=== PATIENT | male | born 1970 | race Caucasian/White ===

== ENCOUNTER 2020-05-13 15:44 | Outpatient (CLI) | payer MEDICAID ==
[~2020-05-13] VITALS: Ht 195.6 cm; Wt 129.3 kg
[~2020-05-13 15:44] MED LIST: HYDR1TAB PO
[2020-05-13] MEDS ORDERED: albuterol 2.5 MG/3 ML nebule NEB ONE (16:25)
[2020-05-13] MEDS ORDERED: albuterol 2.5 MG/3 ML nebule NEB PRN (16:25)
== END 2020-05-13 23:59 | disposition home or self-care (01) ==
LOC: RT 15:44
PROVIDERS: ATTEND Family Medicine
DX: G47.30 Sleep apnea, unspecified (principal)
CPT/HCPCS: 94060; 94760

== ENCOUNTER 2020-07-11 20:55 | Emergency (ER) | payer MEDICAID ==
[~2020-07-11] VITALS: Ht 195.6 cm; Wt 133.8 kg
[2020-07-11] MEDS ORDERED: oxyCODONE/APAP 10/325mg tablet PO ONE (21:50)
[2020-07-11 22:09] LABS: ALANINE AMINOTRANSFERASE 112 U/L (12-78); ALBUMIN 3.6 G/DL (3.4-5.0); ALBUMIN/GLOBULIN RATIO 0.9 (1.1-1.5); ALKALINE PHOSPHATASE 223 IU/L (46-116); ANION GAP 14 (8-16); ASPARTATE AMINO TRANSFERASE 192 U/L (10-37); BILIRUBIN,TOTAL 0.9 MG/DL (0.1-1.0); BLOOD UREA NITROGEN 6 MG/DL (7-18); BUN/CREATININE RATIO 7.3 (5.4-32.0); CALCIUM 8.4 MG/DL (8.5-10.1); CHLORIDE 105 MMOL/L (99-107); CREATININE 0.82 MG/DL (0.60-1.10); GLUCOSE 112 MG/DL (70-104); POTASSIUM 3.1 MMOL/L (3.5-5.1); SODIUM 142 MMOL/L (135-145); TOTAL CARBON DIOXIDE 22.9 MMOL/L (24-32); TOTAL PROTEIN 7.8 G/DL (6.4-8.2); eGFR > 90 ML/MIN
[2020-07-11 22:12] LABS: BASOPHILS # (AUTO) 0.1 X10'3 (0-0.2); BASOPHILS % (AUTO) 0.9 % (0-1); EOSINOPHILS # (AUTO) 0.1 X10'3 (0-0.9); EOSINOPHILS % (AUTO) 0.7 % (0-6); HEMATOCRIT 43.1 % (42.0-52.0); HEMOGLOBIN 14.4 g/dl (14.0-17.9); LYMPHOCYTES # (AUTO) 1.9 X10'3 (1.1-4.8); LYMPHOCYTES % (AUTO) 21.7 % (21-51); MEAN CORPUSCULAR HEMOGLOBIN 34.1 PG (27.0-31.0); MEAN CORPUSCULAR HGB CONC 33.5 g/dL (33.0-36.5); MEAN CORPUSCULAR VOLUME 101.8 FL (78-98); MEAN PLATELET VOLUME 9.4 FL (7.4-10.4); MONOCYTES # (AUTO) 0.7 X10'3 (0-0.9); MONOCYTES % (AUTO) 7.7 % (2-12); PLATELET COUNT 159 X10'3 (140-440); RED BLOOD COUNT 4.24 X10'6 (4.70-6.10); WHITE BLOOD COUNT 8.7 X10'3 (4.5-11.0)
[2020-07-11] MEDS ORDERED: iohexol 300mg/ml 100ml inj. ONE (22:39)
[2020-07-11 23:55] VITALS: BP 148/86
== END 2020-07-11 23:45 | disposition home or self-care (01) ==
LOC: ER 20:56
DX: S09.90XA Unspecified injury of head, initial encounter (principal); R07.89 Other chest pain; H11.31 Conjunctival hemorrhage, right eye; F17.200 Nicotine dependence, unspecified, uncomplicated; F12.90 Cannabis use, unspecified, uncomplicated; Z98.890 Other specified postprocedural states; Z72.89 Other problems related to lifestyle; Z56.0 Unemployment, unspecified; Z59.0 Homelessness; Z79.899 Other long term (current) drug therapy; X58.XXXA Exposure to other specified factors, initial encounter; Y93.89 Activity, other specified; Y92.89 Other specified places as the place of occurrence of the external cause; Y99.8 Other external cause status
CPT/HCPCS: 36415; 70460; 71046; 71260; 74177; 80053; 85025; 99285; Q9967

== ENCOUNTER 2021-12-04 09:51 | Inpatient (IN) | payer MEDICAID ==
[~2021-12-04] VITALS: Ht 195.6 cm; Wt 131.8 kg
[~2021-12-04 09:51] MED LIST changes: +ALBU6.7H9 PO; +BECL10.62 PO; -HYDR1TAB PO
[2021-12-04] MEDS ORDERED: iohexol 350MG/ML 100ml bottle IV ONE (10:02)
[2021-12-04 10:44] LABS: BASOPHILS % (AUTO) 0.6 % (0-1); EOSINOPHILS # (AUTO) 0.2 X10'3 (0-0.9); EOSINOPHILS % (AUTO) 2.8 % (0-6); HEMATOCRIT 44.6 % (42.0-52.0); HEMOGLOBIN 15.5 g/dl (14.0-17.9); LYMPHOCYTES # (AUTO) 1.7 X10'3 (1.1-4.8); LYMPHOCYTES % (AUTO) 26.3 % (21-51); MEAN CORPUSCULAR HEMOGLOBIN 37.1 PG (27.0-31.0); MEAN CORPUSCULAR HGB CONC 34.9 g/dL (33.0-36.5); MEAN CORPUSCULAR VOLUME 106.5 FL (78-98); MEAN PLATELET VOLUME 8.5 FL (7.4-10.4); MONOCYTES # (AUTO) 0.4 X10'3 (0-0.9); MONOCYTES % (AUTO) 5.9 % (2-12); NEUTROPHILS # (AUTO) 4.1 X10'3 (1.8-7.7); NEUTROPHILS % (AUTO) 64.4 % (42-75); PLATELET COUNT 125 X10'3 (140-440); RED BLOOD COUNT 4.19 X10'6 (4.70-6.10); WHITE BLOOD COUNT 6.4 X10'3 (4.5-11.0)
[2021-12-04] MEDS ORDERED: aspirin 325mg tablet PO ONE (10:45)
[2021-12-04 10:53] LABS: APTT 25 SECONDS (22-32)
[2021-12-04 10:55] LABS: ALANINE AMINOTRANSFERASE 83 U/L (12-78); ALBUMIN 3.1 G/DL (3.4-5.0); ALBUMIN/GLOBULIN RATIO 0.8 (1.1-1.5); ALKALINE PHOSPHATASE 188 IU/L (46-116); ANION GAP 14 (8-16); ASPARTATE AMINO TRANSFERASE 160 U/L (10-37); BILIRUBIN,TOTAL 1.1 MG/DL (0.1-1.0); BLOOD UREA NITROGEN 11 MG/DL (7-18); BUN/CREATININE RATIO 12.8 (5.4-32.0); CALCIUM 8.5 MG/DL (8.5-10.1); CHLORIDE 100 MMOL/L (99-107); CREATININE 0.86 MG/DL (0.60-1.10); GLUCOSE 123 MG/DL (70-104); POTASSIUM 3.4 MMOL/L (3.5-5.1); SODIUM 136 MMOL/L (135-145); TOTAL PROTEIN 6.9 G/DL (6.4-8.2); eGFR > 90 ML/MIN
[2021-12-04] MEDS ORDERED: clopidogrel 300mg tablet PO ONE (11:05)
[2021-12-04 12:36] LABS: CHOLESTEROL 275 MG/DL (0-200); HDL CHOLESTEROL 23 MG/DL (35-60); LDL CHOLESTEROL 86 MG/DL (50-100); TRIGLYCERIDES 741 MG/DL (20-135)
[2021-12-04] MEDS ORDERED: atorvastatin 10mg tablet PO SCH (12:40)
[2021-12-04] MEDS ORDERED: PERFLUTREN PROTEIN-A MICROSPHR (Optison) 0.22 MG/ML 3ML VIAL IV ONE (12:40)
[2021-12-04] MEDS ORDERED: magnesium Cl slow-release 64mg tablet PO PRN (12:40)
[2021-12-04] MEDS ORDERED: magnesium 4gm in 100ml NS 100 ML IV PRN (12:40)
[2021-12-04] MEDS ORDERED: potassium Cl 20 mEq SR tablet PO PRN ×2 (12:40)
[2021-12-04] MEDS ORDERED: HYDROcodone/acetaminophen 10/325mg tab PO PRN (12:40)
[2021-12-04] MEDS ORDERED: diphenhydrAMINE 25mg capsule PO PRN (12:40)
[2021-12-04] MEDS ORDERED: ondansetron/PF 4mg/2ml inj IV PRN (12:40)
[2021-12-04] MEDS ORDERED: potassium CL 10mEq/100ml bag 100 ML IV PRN (12:40)
[2021-12-04] MEDS ORDERED: acetaminophen 325mg tablet PO PRN ×2 (12:40)
[2021-12-04] MEDS ORDERED: naloxone 0.4 mg/ml inj IV PRN (12:40)
[2021-12-04] MEDS ORDERED: bisacodyl 10mg suppository rectal RC PRN (12:40)
[2021-12-04] MEDS ORDERED: mag hydrox/Alum hydrox/simeth 30ml oral suspension PO PRN (12:40)
[2021-12-04] MEDS ORDERED: magnesium 2GM in 50ml NS 50 ML IV PRN (12:40)
[2021-12-04] MEDS ORDERED: magnesium hydroxide 30ml (MOM) UD suspension PO PRN (12:40)
[2021-12-04] MEDS ORDERED: HYDROcodone/acetaminophen 5mg/325mg tablet PO PRN (12:40)
[2021-12-04] MEDS ORDERED: acetaminophen 650mg rectal suppository RC PRN (12:40)
[2021-12-04] MEDS ORDERED: morphine 2 MG/ML inj. syringe IV PRN ×2 (12:40)
--- NOTE | 2021-12-04 13:05 | NUR ---
pt reports nausea and vomiting s/p medical claims processor. sitting at edge of bed, diaphoretic. vss. pt medicated with 4mg iv zofran, saltine crackers provided.
[2021-12-04 13:08] LABS: HEMOGLOBIN A1C 5.5 % (4.5-6.2)
--- NOTE | 2021-12-04 13:30 | NUR ---
PAGED DR. TATE REGARDING PT'S NAUSEA AND WRETCHING. CONTINUES TO WRETCH AFTER ZOFRAN ADMIN. AWAITING PAGE.
[2021-12-04] MEDS ORDERED: metoclopramide 5 mg/ml inj IV PRN (15:05)
[2021-12-04] MEDS ORDERED: metoclopramide 5 mg/ml inj IV ONE (15:05)
[2021-12-04] MEDS: normal saline 1000ml 1,000 ML IV SCH ×2 (15:30→22:40)
[2021-12-04] MEDS ORDERED: NO HOME MEDS (15:47)
--- NOTE | 2021-12-04 16:00 | NUR ---
MRI ATTEMPTED, PER MOTHER'S HELPER PT BECOMES TOO NAUSEOUS FOR TEST. PT ALSO CLAUSTROPHOBIC, WILL LIKELY NEED ANXIETY MEDS FOR MRI TOMORROW.
--- NOTE | 2021-12-04 17:46 | NUR ---
PT PLACED ON 3L NC, PT WEARS 02 TO SLEEP. 02 INCREASED TO 94%.
[2021-12-04] MEDS: K and/or MAG REPLACEMENT MC SCH (20:00)
[2021-12-04] MEDS: docusate sod 100mg capsule PO SCH (20:00)
[2021-12-05] MEDS ORDERED: mag hydrox/Alum hydrox/simeth 30ml oral suspension PO ONE (01:15)
[2021-12-05 07:30] LABS: BASOPHILS % (AUTO) 0.7 % (0-1); EOSINOPHILS # (AUTO) 0.2 X10'3 (0-0.9); EOSINOPHILS % (AUTO) 3.6 % (0-6); HEMATOCRIT 44.1 % (42.0-52.0); HEMOGLOBIN 15.1 g/dl (14.0-17.9); LYMPHOCYTES # (AUTO) 1.4 X10'3 (1.1-4.8); LYMPHOCYTES % (AUTO) 23.8 % (21-51); MEAN CORPUSCULAR HEMOGLOBIN 36.9 PG (27.0-31.0); MEAN CORPUSCULAR HGB CONC 34.2 g/dL (33.0-36.5); MEAN PLATELET VOLUME 8.7 FL (7.4-10.4); MONOCYTES # (AUTO) 0.3 X10'3 (0-0.9); MONOCYTES % (AUTO) 5.8 % (2-12); NEUTROPHILS % (AUTO) 66.1 % (42-75); PLATELET COUNT 107 X10'3 (140-440); RED BLOOD COUNT 4.09 X10'6 (4.70-6.10); RED CELL DISTRIBUTION WIDTH 13.3 % (11.5-14.5)
[2021-12-05 07:50] LABS: ALANINE AMINOTRANSFERASE 86 U/L (12-78); ALBUMIN 3.2 G/DL (3.4-5.0); ALBUMIN/GLOBULIN RATIO 0.8 (1.1-1.5); ALKALINE PHOSPHATASE 175 IU/L (46-116); ANION GAP 7 (8-16); ASPARTATE AMINO TRANSFERASE 140 U/L (10-37); BILIRUBIN,TOTAL 1.6 MG/DL (0.1-1.0); BLOOD UREA NITROGEN 10 MG/DL (7-18); BUN/CREATININE RATIO 13.7 (5.4-32.0); CALCIUM 8.3 MG/DL (8.5-10.1); CHLORIDE 106 MMOL/L (99-107); CHOL/HDL RATIO 7.1 (0.00-4.99); CHOLESTEROL 235 MG/DL (0-200); CREATININE 0.73 MG/DL (0.60-1.10); GLUCOSE 118 MG/DL (70-104); HDL CHOLESTEROL 33 MG/DL (35-60); LDL CHOLESTEROL 149 MG/DL (50-100); MAGNESIUM 2.2 MG/DL (1.5-2.4); PHOSPHORUS 3.5 MG/DL (2.3-4.5); POTASSIUM 4.1 MMOL/L (3.5-5.1); SODIUM 140 MMOL/L (135-145); TOTAL CARBON DIOXIDE 26.9 MMOL/L (24-32); TRIGLYCERIDES 178 MG/DL (20-135); eGFR > 90 ML/MIN
[2021-12-05] MEDS: K and/or MAG REPLACEMENT MC SCH ×2 (08:00→20:00)
[2021-12-05] MEDS ORDERED: clopidogrel 75mg tablet PO SCH (08:00)
[2021-12-05] MEDS: docusate sod 100mg capsule PO SCH ×2 (08:00→21:01)
[2021-12-05] MEDS: clopidogrel 75mg tablet PO SCH (08:12)
[2021-12-05] MEDS: aspirin 81mg, enteric-coated 1 TAB TABLET.DR PO SCH (08:12)
[2021-12-05] MEDS: atorvastatin 20mg tablet PO SCH (08:12)
[2021-12-05] MEDS: normal saline 1000ml 1,000 ML IV SCH ×2 (08:36→19:18)
--- NOTE | 2021-12-05 09:01 | NUR ---
Message: [id number], Deborah just got patient from ER patient needs ativan for MRI they attempted yesterday and he could not tolerate it, can i get a one time order please? thanks [id number]
[2021-12-05] MEDS ORDERED: LORazepam 2 mg/ml vial IV ONE (09:05)
--- NOTE | 2021-12-05 09:07 | NUR ---
Received orders for ativan for patient for MRI, spoke with property maintenance technician and he will have it later this afternoon
[2021-12-05 09:34] VITALS: BP 154/90
[2021-12-05 09:43] LABS: CLARITY,URINE CLEAR (Clear); GLUCOSE, URINE NEGATIVE (Neg); KETONES,URINE NEGATIVE (Neg); LEUKOCYTE ESTERASE ,URINE NEGATIVE (Neg); NITRITES, URINE NEGATIVE (Neg); OCCULT BLOOD,URINE NEGATIVE (Neg); PH,URINE 6.5 (4.8-8.0); PROTEIN,URINE NEGATIVE (Neg)
[2021-12-05 09:52] LABS: COLOR,URINE DARK YELLOW (Yellow); UA COLLECTION TYPE CLN CATCH MIDSTREAM
[2021-12-05 10:21] LABS: URINE AMPHETAMINE SCREEN NEGATIVE (Neg); URINE BARBITUATE SCREEN NEGATIVE (Neg); URINE BENZODIAZEPINES SCREEN NEGATIVE (Neg); URINE CANNABINOID SCREEN POSITIVE (Neg); URINE COCAINE SCREEN NEGATIVE (Neg); URINE METHADONE SCREEN NEGATIVE (Neg); URINE OPIATE SCREEN NEGATIVE (Neg); URINE PHENCYCLIDINE SCREEN NEGATIVE (Neg)
--- NOTE | 2021-12-05 10:52 | NUR ---
Patient in MRI
--- NOTE | 2021-12-05 11:13 | NUR ---
Patient back from MRI; NPO for abdominal ultrasound; page sent
[2021-12-05 11:38] LABS: HIV ANTIBODY 1&2 RAPID NON-REACTIVE (Neg)
[2021-12-05 14:00] VITALS: BP 143/93
[2021-12-05 18:00] VITALS: BP 149/74
--- NOTE | 2021-12-05 18:17 | NUR ---
Report given to November, RN
[2021-12-05 22:00] VITALS: BP 131/73
[2021-12-06 02:00] VITALS: BP 142/68
[2021-12-06] MEDS: normal saline 1000ml 1,000 ML IV SCH (04:38)
[2021-12-06 06:00] VITALS: BP 142/87
--- NOTE | 2021-12-06 06:45 | NUR ---
Patient in room [facility]THO 4021B. I have received report from KYAW BERGMAN and had the opportunity to ask questions and assume patient care.
[2021-12-06 07:32] LABS: BASOPHILS % (AUTO) 0.8 % (0-1); EOSINOPHILS # (AUTO) 0.2 X10'3 (0-0.9); EOSINOPHILS % (AUTO) 4.6 % (0-6); HEMATOCRIT 40.9 % (42.0-52.0); HEMOGLOBIN 13.9 g/dl (14.0-17.9); LYMPHOCYTES # (AUTO) 1.2 X10'3 (1.1-4.8); LYMPHOCYTES % (AUTO) 23.4 % (21-51); MEAN CORPUSCULAR HEMOGLOBIN 36.6 PG (27.0-31.0); MEAN CORPUSCULAR HGB CONC 33.9 g/dL (33.0-36.5); MEAN PLATELET VOLUME 9.2 FL (7.4-10.4); MONOCYTES # (AUTO) 0.4 X10'3 (0-0.9); MONOCYTES % (AUTO) 7.8 % (2-12); NEUTROPHILS # (AUTO) 3.4 X10'3 (1.8-7.7); NEUTROPHILS % (AUTO) 63.4 % (42-75); PLATELET COUNT 98 X10'3 (140-440); RED BLOOD COUNT 3.79 X10'6 (4.70-6.10); RED CELL DISTRIBUTION WIDTH 13.3 % (11.5-14.5); WHITE BLOOD COUNT 5.3 X10'3 (4.5-11.0)
[2021-12-06] MEDS: aspirin 81mg, enteric-coated 1 TAB TABLET.DR PO SCH (07:42)
[2021-12-06] MEDS: clopidogrel 75mg tablet PO SCH (07:42)
[2021-12-06] MEDS: atorvastatin 20mg tablet PO SCH (07:42)
[2021-12-06] MEDS: docusate sod 100mg capsule PO SCH (07:42)
[2021-12-06 07:49] LABS: ALANINE AMINOTRANSFERASE 94 U/L (12-78); ALBUMIN 2.9 G/DL (3.4-5.0); ALBUMIN/GLOBULIN RATIO 0.8 (1.1-1.5); ALKALINE PHOSPHATASE 151 IU/L (46-116); ANION GAP 4 (8-16); ASPARTATE AMINO TRANSFERASE 150 U/L (10-37); BILIRUBIN,TOTAL 1.4 MG/DL (0.1-1.0); BLOOD UREA NITROGEN 10 MG/DL (7-18); BUN/CREATININE RATIO 12.8 (5.4-32.0); CALCIUM 7.9 MG/DL (8.5-10.1); CHLORIDE 107 MMOL/L (99-107); CREATININE 0.78 MG/DL (0.60-1.10); GLUCOSE 102 MG/DL (70-104); MAGNESIUM 1.9 MG/DL (1.5-2.4); PHOSPHORUS 3.3 MG/DL (2.3-4.5); POTASSIUM 4.2 MMOL/L (3.5-5.1); SODIUM 140 MMOL/L (135-145); TOTAL PROTEIN 6.5 G/DL (6.4-8.2); eGFR > 90 ML/MIN
[2021-12-06] MEDS: K and/or MAG REPLACEMENT MC SCH (08:00)
[2021-12-06] MEDS ORDERED: CLOP75TA34 PO (10:21)
[2021-12-06] MEDS ORDERED: ASPI-1071 PO (10:21)
[2021-12-06] MEDS ORDERED: ATOR20TA66 PO (10:21)
[2021-12-06 11:00] VITALS: BP 164/89
[2021-12-06 12:30] LABS: HBSAG SCREEN Negative (Negative); HEP A AB, IGM Negative (Negative); HEPATITIS C ANTIBODY <0.1 s/co ratio (0.0-0.9)
--- NOTE | 2021-12-06 13:11 | NUR ---
PATIENT STABLE AND APPROPRIATE FOR DISCHARGE, IVS TAKEN OUT, EDUCATION GIVEN, NEW MEDS E-SCRIPTED TO PREFERRED PHARMACY, REQUESTED A FOLLOW UP APPOINTMENT BE MADE PRIOR TO DISCHARGE CASE MANAGEMENT CALLED TO SET UP APPOINTMENT WITH [facility], [facility] DECLINED TO MAKE APPOINTMENT WITH CASE MANAGEMENT AND STATED THEY WOULD CONTACT PATIENT TO SET UP APPOINTMENT, CASE MANAGEMENT TEXT/PAGED ABOUT THIS, PATIENT ENCOURAGED TO CALL [facility] TO SET UP APPOINTMENT, ALL BELONGINGS SENT WITH PATIENT, PATIENT TAKEN TO LOBBY IN WHEELCHAIR TO AN AWAITING CAR WHERE WILL TAKE PATIENT HOME
== END 2021-12-06 13:10 | disposition home or self-care (01) | DRG 45 ==
LOC: ER 09:51 → ED HOLD 12:41 → UNDOADMIN 12:41 → ED HOLD 22:46 → EDBEDREQ 12-05 08:08 → ORTHO 4S 12-05 08:55
PROVIDERS: ADMIT Family Medicine; ATTEND Family Medicine
PROC: B3251ZZ Computerized Tomography (CT Scan) of Bilateral Common Carotid Arteries using Low Osmolar Contrast (ICD-10-PCS; principal; 2021-12-04)
PROC: B32G1ZZ Computerized Tomography (CT Scan) of Bilateral Vertebral Arteries using Low Osmolar Contrast (ICD-10-PCS; 2021-12-04)
PROC: B32R1ZZ Computerized Tomography (CT Scan) of Intracranial Arteries using Low Osmolar Contrast (ICD-10-PCS; 2021-12-04)
PROC: B3281ZZ Computerized Tomography (CT Scan) of Bilateral Internal Carotid Arteries using Low Osmolar Contrast (ICD-10-PCS; 2021-12-04)
DX: I63.9 Cerebral infarction, unspecified (principal); I77.74 Dissection of vertebral artery; E87.6 Hypokalemia; F12.90 Cannabis use, unspecified, uncomplicated; K76.9 Liver disease, unspecified; M54.2 Cervicalgia; I10 Essential (primary) hypertension; R29.704 NIHSS score 4; M54.9 Dorsalgia, unspecified; R11.2 Nausea with vomiting, unspecified; R47.1 Dysarthria and anarthria; F17.210 Nicotine dependence, cigarettes, uncomplicated; J44.9 Chronic obstructive pulmonary disease, unspecified; Z79.899 Other long term (current) drug therapy; Z82.49 Family history of ischemic heart disease and other diseases of the circulatory system; Z86.16 Personal history of COVID-19; Z56.0 Unemployment, unspecified; Z59.00 Homelessness unspecified; Z90.49 Acquired absence of other specified parts of digestive tract; Z71.6 Tobacco abuse counseling
CPT/HCPCS: 36415; 70450; 70496; 70498; 70551; 71045; 76700; 80053; 80061; 80305; 81003; 82948; 83036; 83735; 84100; 84443; 84484; 85025; 85610; 85651; 85730; 86703; 86705; 86706; 86709; 86803; 87081; 87340; 92508; 92616; 93005; 93306; 97161; 99291; G0378; J2060; J2405; J2765; J7030; Q9967

== ENCOUNTER 2022-01-16 19:12 | Inpatient (IN) | payer MEDICAID ==
[~2022-01-16] VITALS: Ht 182.9 cm; Wt 113.0 kg
[~2022-01-16 19:12] MED LIST changes: -ALBU6.7H9 PO; +ASPI-1071 PO; +ATOR20TA66 PO; -BECL10.62 PO; +CLOP75TA34 PO
[2022-01-16 20:02] LABS: BASOPHILS # (AUTO) 0.1 X10'3 (0-0.2); BASOPHILS % (AUTO) 0.7 % (0-1); EOSINOPHILS # (AUTO) 0.3 X10'3 (0-0.9); EOSINOPHILS % (AUTO) 3.2 % (0-6); HEMATOCRIT 38.6 % (42.0-52.0); HEMOGLOBIN 12.9 g/dl (14.0-17.9); LYMPHOCYTES # (AUTO) 2.6 X10'3 (1.1-4.8); LYMPHOCYTES % (AUTO) 32.6 % (21-51); MEAN CORPUSCULAR HEMOGLOBIN 35.8 PG (27.0-31.0); MEAN CORPUSCULAR HGB CONC 33.4 g/dL (33.0-36.5); MEAN CORPUSCULAR VOLUME 107.3 FL (78-98); MEAN PLATELET VOLUME 8.7 FL (7.4-10.4); MONOCYTES # (AUTO) 0.8 X10'3 (0-0.9); MONOCYTES % (AUTO) 10.5 % (2-12); NEUTROPHILS # (AUTO) 4.2 X10'3 (1.8-7.7); PLATELET COUNT 159 X10'3 (140-440); RED BLOOD COUNT 3.59 X10'6 (4.70-6.10); RED CELL DISTRIBUTION WIDTH 13.6 % (11.5-14.5)
[2022-01-16 20:12] LABS: APTT 27 SECONDS (22-32)
[2022-01-16 20:14] LABS: ALANINE AMINOTRANSFERASE 101 U/L (12-78); ALBUMIN 3.2 G/DL (3.4-5.0); ALBUMIN/GLOBULIN RATIO 0.9 (1.1-1.5); ALKALINE PHOSPHATASE 233 IU/L (46-116); ANION GAP 9 (8-16); ASPARTATE AMINO TRANSFERASE 120 U/L (10-37); BILIRUBIN,TOTAL 0.6 MG/DL (0.1-1.0); BLOOD UREA NITROGEN 8 MG/DL (7-18); BUN/CREATININE RATIO 7.1 (5.4-32.0); CHLORIDE 107 MMOL/L (99-107); CREATININE 1.12 MG/DL (0.60-1.10); GLUCOSE 139 MG/DL (70-104); POTASSIUM 3.1 MMOL/L (3.5-5.1); SODIUM 141 MMOL/L (135-145); TOTAL CARBON DIOXIDE 25.5 MMOL/L (24-32); TOTAL PROTEIN 6.9 G/DL (6.4-8.2); eGFR 70 ML/MIN
[2022-01-16] MEDS ORDERED: aspirin 81mg tab.chew PO ONE (20:30)
[2022-01-16] MEDS ORDERED: temazepam 15mg capsule PO PRN (21:00)
--- NOTE | 2022-01-16 21:12 | NUR ---
pt has bp at 87/42. talked to dr. bass and current belief is low bp secondary to new blood pressure medication that he started a week ago. pt does not remember what medication he is on.
--- NOTE | 2022-01-16 21:34 | NUR ---
md hobson at bedside
[2022-01-16] MEDS ORDERED: acetaminophen 650mg rectal suppository RC PRN (22:45)
[2022-01-16] MEDS ORDERED: diphenhydrAMINE 50 mg/ml inj IV PRN (22:45)
[2022-01-16] MEDS ORDERED: POTASSIUM BICARB 20meq eff tab 20 MEQ TABLET.EFF PO PRN ×2 (22:45)
[2022-01-16] MEDS ORDERED: acetaminophen 325mg tablet PO PRN ×2 (22:45)
[2022-01-16] MEDS ORDERED: magnesium 4gm in 100ml NS 100 ML IV PRN (22:45)
[2022-01-16] MEDS ORDERED: HYDROcodone/acetaminophen 5mg/325mg tablet PO PRN (22:45)
[2022-01-16] MEDS ORDERED: ondansetron/PF 4mg/2ml inj IV PRN (22:45)
[2022-01-16] MEDS ORDERED: magnesium hydroxide 30ml (MOM) UD suspension PO PRN (22:45)
[2022-01-16] MEDS ORDERED: HYDROcodone/acetaminophen 10/325mg tab PO PRN (22:45)
[2022-01-16] MEDS ORDERED: mag hydrox/Alum hydrox/simeth 30ml oral suspension PO PRN (22:45)
[2022-01-16] MEDS ORDERED: magnesium 2GM in 50ml NS 50 ML IV PRN (22:45)
[2022-01-16] MEDS ORDERED: potassium CL 10mEq/100ml bag 100 ML IV PRN (22:45)
[2022-01-16] MEDS ORDERED: ondansetron 4mg rapidly disintigrating tab PO PRN (22:45)
[2022-01-16] MEDS ORDERED: magnesium Cl slow-release 64mg tablet PO PRN (22:45)
[2022-01-16] MEDS ORDERED: bisacodyl 10mg suppository rectal RC PRN (22:45)
[2022-01-16] MEDS ORDERED: morphine 2 MG/ML inj. syringe IV PRN ×2 (22:45)
[2022-01-16] MEDS ORDERED: diphenhydrAMINE 25mg capsule PO PRN (22:45)
[2022-01-16] MEDS ORDERED: HYDROmorphone inj. 0.5 MG/0.5 ML DISP.SYRIN IV PRN (22:45)
[2022-01-16] MEDS ORDERED: aminophylline 250mg/10ml inj. IV PRN (22:55)
[2022-01-16] MEDS ORDERED: metoprolol tartrate 1mg/ml inj IV PRN (22:55)
[2022-01-16] MEDS ORDERED: nicotine 21mg patch - 24 hr TD ONE (22:55)
[2022-01-16] MEDS ORDERED: regadenoson 0.4mg/5ml syringe IV PRN (22:55)
[2022-01-16] MEDS ORDERED: nitroGLYCERIN 0.4mg SUBLingual tab SL PRN (22:55)
[2022-01-16 23:04] LABS: MAGNESIUM 1.8 MG/DL (1.5-2.4); PHOSPHORUS 3.2 MG/DL (2.3-4.5); POTASSIUM 3.2 MMOL/L (3.5-5.1)
[2022-01-16] MEDS ORDERED: aminophylline 500mg/20ml vial IV PRN (23:05)
[2022-01-17] VITALS (9 sets, daily range): BP systolic 131–169; BP diastolic 77–97
[2022-01-17] MEDS: potassium Cl 20mEq in NS 1,000 ML IV SCH ×3 (00:04→21:06)
[2022-01-17] MEDS ORDERED: BECL10.62 PO (02:08)
[2022-01-17] MEDS ORDERED: LISI5TAB22 PO (02:08)
[2022-01-17] MEDS ORDERED: CLOP75TA34 PO (02:10)
[2022-01-17] MEDS ORDERED: ATOR-2 PO (02:10)
[2022-01-17] MEDS ORDERED: ASPI-1397 PO (02:10)
[2022-01-17 02:56] LABS: BASOPHILS % (AUTO) 0.9 % (0-1); EOSINOPHILS # (AUTO) 0.2 X10'3 (0-0.9); EOSINOPHILS % (AUTO) 3.7 % (0-6); HEMATOCRIT 35.5 % (42.0-52.0); HEMOGLOBIN 11.9 g/dl (14.0-17.9); LYMPHOCYTES % (AUTO) 38.8 % (21-51); MEAN CORPUSCULAR HGB CONC 33.5 g/dL (33.0-36.5); MEAN CORPUSCULAR VOLUME 107.5 FL (78-98); MONOCYTES # (AUTO) 0.6 X10'3 (0-0.9); MONOCYTES % (AUTO) 10.5 % (2-12); NEUTROPHILS # (AUTO) 2.4 X10'3 (1.8-7.7); NEUTROPHILS % (AUTO) 46.1 % (42-75); PLATELET COUNT 127 X10'3 (140-440); RED CELL DISTRIBUTION WIDTH 13.7 % (11.5-14.5); WHITE BLOOD COUNT 5.2 X10'3 (4.5-11.0)
[2022-01-17 03:03] LABS: ALANINE AMINOTRANSFERASE 91 U/L (12-78); ALBUMIN 2.8 G/DL (3.4-5.0); ALBUMIN/GLOBULIN RATIO 0.8 (1.1-1.5); ALKALINE PHOSPHATASE 214 IU/L (46-116); ANION GAP 11 (8-16); ASPARTATE AMINO TRANSFERASE 119 U/L (10-37); BILIRUBIN,TOTAL 0.5 MG/DL (0.1-1.0); BLOOD UREA NITROGEN 9 MG/DL (7-18); BUN/CREATININE RATIO 11.7 (5.4-32.0); CALCIUM 7.7 MG/DL (8.5-10.1); CHLORIDE 107 MMOL/L (99-107); CREATININE 0.77 MG/DL (0.60-1.10); GLUCOSE 110 MG/DL (70-104); MAGNESIUM 1.8 MG/DL (1.5-2.4); POTASSIUM 3.3 MMOL/L (3.5-5.1); SODIUM 145 MMOL/L (135-145); TOTAL CARBON DIOXIDE 27.2 MMOL/L (24-32); TOTAL PROTEIN 6.3 G/DL (6.4-8.2); eGFR > 90 ML/MIN
[2022-01-17] MEDS: pantoprazole 40mg Tablet.DR PO SCH (07:26)
[2022-01-17] MEDS: docusate sod 100mg capsule PO SCH ×2 (07:26→20:00)
[2022-01-17] MEDS: heparin, porcine 5000 units/ml vial SQ SCH ×2 (07:27→20:00)
[2022-01-17] MEDS: K and/or MAG REPLACEMENT MC SCH ×2 (07:27→20:00)
--- NOTE | 2022-01-17 07:45 | NUR ---
MRI FORM FAXED TO MRI.
--- NOTE | 2022-01-17 13:22 | NUR ---
PATIENT DONE EATING LUNCH.
--- NOTE | 2022-01-17 14:21 | NUR ---
paged Dr. Nguyen- med rec needs to be address.
--- NOTE | 2022-01-17 14:22 | NUR ---
attempted to call report to [facility] but unsuccessful.
--- NOTE | 2022-01-17 14:40 | NUR ---
attempted to call report again but RN is in isolation room.
--- NOTE | 2022-01-17 15:39 | NUR ---
Patient in room ED 4. I have received report from Zee CARD and had the opportunity to ask questions and assume patient care.
--- NOTE | 2022-01-17 17:35 | NUR ---
patient appears stable neurochecks unremarkable will continue to monitor
[2022-01-17] MEDS ORDERED: lisinopril 5mg tablet PO SCH (18:10)
[2022-01-17] MEDS ORDERED: aspirin 81mg, enteric-coated 1 TAB TABLET.DR PO SCH (18:15)
[2022-01-17] MEDS ORDERED: atorvastatin 20mg tablet PO SCH (18:15)
[2022-01-17] MEDS ORDERED: clopidogrel 75mg tablet PO SCH (18:15)
--- NOTE | 2022-01-17 18:25 | NUR ---
Patient in room PCU 3015. I have received report from Cindy Christianson and had the opportunity to ask questions and assume patient care.
--- NOTE | 2022-01-17 18:35 | NUR ---
Problems reprioritized. Patient report given, questions answered & plan of care reviewed with Glenda CARD.
[2022-01-17] MEDS: aspirin 81mg, enteric-coated 1 TAB TABLET.DR PO SCH (20:00)
[2022-01-17] MEDS: clopidogrel 75mg tablet PO SCH (21:14)
[2022-01-17] MEDS: lisinopril 5mg tablet PO SCH (21:16)
[2022-01-17] MEDS: atorvastatin 20mg tablet PO SCH (21:22)
[2022-01-18 02:00] VITALS: BP 142/92
[2022-01-18] MEDS: potassium Cl 20mEq in NS 1,000 ML IV SCH (05:23)
[2022-01-18 06:00] VITALS: BP 156/95
[2022-01-18 06:41] LABS: BASOPHILS % (AUTO) 1.2 % (0-1); EOSINOPHILS # (AUTO) 0.1 X10'3 (0-0.9); EOSINOPHILS % (AUTO) 3.4 % (0-6); HEMOGLOBIN 12.9 g/dl (14.0-17.9); LYMPHOCYTES # (AUTO) 1.3 X10'3 (1.1-4.8); MEAN CORPUSCULAR HEMOGLOBIN 36.3 PG (27.0-31.0); MEAN CORPUSCULAR HGB CONC 33.9 g/dL (33.0-36.5); MEAN CORPUSCULAR VOLUME 107.1 FL (78-98); MEAN PLATELET VOLUME 8.9 FL (7.4-10.4); MONOCYTES # (AUTO) 0.5 X10'3 (0-0.9); MONOCYTES % (AUTO) 12.5 % (2-12); NEUTROPHILS # (AUTO) 1.9 X10'3 (1.8-7.7); NEUTROPHILS % (AUTO) 48.9 % (42-75); PLATELET COUNT 111 X10'3 (140-440); RED BLOOD COUNT 3.54 X10'6 (4.70-6.10); RED CELL DISTRIBUTION WIDTH 13.7 % (11.5-14.5); WHITE BLOOD COUNT 3.8 X10'3 (4.5-11.0)
--- NOTE | 2022-01-18 06:45 | NUR ---
Patient report given to Dilcia CARD
[2022-01-18 07:38] LABS: ALANINE AMINOTRANSFERASE 90 U/L (12-78); ALBUMIN 2.9 G/DL (3.4-5.0); ALBUMIN/GLOBULIN RATIO 0.8 (1.1-1.5); ALKALINE PHOSPHATASE 214 IU/L (46-116); ANION GAP 9 (8-16); ASPARTATE AMINO TRANSFERASE 101 U/L (10-37); BLOOD UREA NITROGEN 7 MG/DL (7-18); BUN/CREATININE RATIO 10.4 (5.4-32.0); CALCIUM 7.9 MG/DL (8.5-10.1); CHLORIDE 108 MMOL/L (99-107); CREATININE 0.67 MG/DL (0.60-1.10); GLUCOSE 110 MG/DL (70-104); MAGNESIUM 1.6 MG/DL (1.5-2.4); POTASSIUM 3.8 MMOL/L (3.5-5.1); SODIUM 143 MMOL/L (135-145); TOTAL PROTEIN 6.5 G/DL (6.4-8.2); eGFR > 90 ML/MIN
[2022-01-18] MEDS: heparin, porcine 5000 units/ml vial SQ SCH (08:00)
[2022-01-18] MEDS: K and/or MAG REPLACEMENT MC SCH (08:00)
[2022-01-18] MEDS: docusate sod 100mg capsule PO SCH (08:00)
[2022-01-18] MEDS: clopidogrel 75mg tablet PO SCH (09:42)
[2022-01-18] MEDS: atorvastatin 20mg tablet PO SCH (09:42)
[2022-01-18] MEDS: aspirin 81mg, enteric-coated 1 TAB TABLET.DR PO SCH (09:42)
[2022-01-18] MEDS: pantoprazole 40mg Tablet.DR PO SCH (09:42)
[2022-01-18] MEDS: lisinopril 5mg tablet PO SCH (09:42)
[2022-01-18 09:46] LABS: LIPASE 298 U/L (73-393)
--- NOTE | 2022-01-18 09:52 | NUR ---
Shahid ENAMORADO. Pt requesting to leave AMA, spoke to him in regards to this, He will try to wait for MD to see him, Addendum: 01/18/22 at 1131 by Dilcia Mc RN Pagedeclan Nguyen again regarding pt requesting to leave AMA, per Dr. Nguyen she has spoken to him and explained that he could if he leaves without proper work-up, Per pt understands risks and He can sign out AMA if he wants to. Addendum: 01/18/22 at 1151 by Dilcia Mc RN [employer] report filed, #[id number]
== END 2022-01-18 12:04 | disposition left against medical advice (07) | DRG 203 ==
LOC: ER 19:14 → ED HOLD 22:47 → PCU 3S 01-17 15:20
PROVIDERS: ADMIT Family Medicine; ATTEND Family Medicine
PROC: 4A02XM4 Measurement of Cardiac Total Activity, External Approach (ICD-10-PCS; principal; 2022-01-17)
PROC: 3E033HZ Introduction of Radioactive Substance into Peripheral Vein, Percutaneous Approach (ICD-10-PCS; 2022-01-17)
DX: R07.89 Other chest pain (principal); I50.9 Heart failure, unspecified; K70.30 Alcoholic cirrhosis of liver without ascites; R47.01 Aphasia; E78.5 Hyperlipidemia, unspecified; E87.6 Hypokalemia; F10.20 Alcohol dependence, uncomplicated; R47.81 Slurred speech; R27.0 Ataxia, unspecified; Z53.29 Procedure and treatment not carried out because of patient's decision for other reasons; R47.1 Dysarthria and anarthria; F12.10 Cannabis abuse, uncomplicated; F17.210 Nicotine dependence, cigarettes, uncomplicated; J44.9 Chronic obstructive pulmonary disease, unspecified; K76.0 Fatty (change of) liver, not elsewhere classified; Z56.0 Unemployment, unspecified; Z59.00 Homelessness unspecified; Z90.49 Acquired absence of other specified parts of digestive tract; Z79.899 Other long term (current) drug therapy; Z71.51 Drug abuse counseling and surveillance of drug abuser; Z71.6 Tobacco abuse counseling; I69.323 Fluency disorder following cerebral infarction
CPT/HCPCS: 36415; 70450; 70551; 71045; 78452; 80053; 83690; 83735; 83880; 84100; 84132; 84484; 85025; 85610; 85730; 92508; 92616; 93017; 97116; 97161; 99285; A9500; G0378; J1644; J2785; J3480

== ENCOUNTER 2022-03-20 22:29 | Emergency (ER) | payer MEDICAID ==
[~2022-03-20] VITALS: Ht 195.6 cm; Wt 134.0 kg
[~2022-03-20 22:29] MED LIST changes: -ASPI-1071 PO; +ASPI-1397 PO; +ATOR-2 PO; -ATOR20TA66 PO; +BECL10.62 PO; +LISI5TAB22 PO
[2022-03-20] MEDS ORDERED: iohexol 350MG/ML 100ml bottle IV ONE (22:35)
--- NOTE | 2022-03-20 22:39 | NUR ---
pt to CT
[2022-03-20 23:04] LABS: BASOPHILS # (AUTO) 0.1 X10'3 (0-0.2); BASOPHILS % (AUTO) 0.5 % (0-1); EOSINOPHILS # (AUTO) 0.3 X10'3 (0-0.9); EOSINOPHILS % (AUTO) 2.5 % (0-6); HEMATOCRIT 37.8 % (42.0-52.0); HEMOGLOBIN 13.1 g/dl (14.0-17.9); LYMPHOCYTES # (AUTO) 3.1 X10'3 (1.1-4.8); LYMPHOCYTES % (AUTO) 29.8 % (21-51); MEAN CORPUSCULAR HEMOGLOBIN 37.7 PG (27.0-31.0); MEAN CORPUSCULAR HGB CONC 34.8 g/dL (33.0-36.5); MEAN CORPUSCULAR VOLUME 108.2 FL (78-98); MEAN PLATELET VOLUME 8.7 FL (7.4-10.4); MONOCYTES # (AUTO) 0.8 X10'3 (0-0.9); MONOCYTES % (AUTO) 8.3 % (2-12); NEUTROPHILS % (AUTO) 58.9 % (42-75); PLATELET COUNT 179 X10'3 (140-440); RED BLOOD COUNT 3.49 X10'6 (4.70-6.10); RED CELL DISTRIBUTION WIDTH 14.1 % (11.5-14.5); WHITE BLOOD COUNT 10.2 X10'3 (4.5-11.0)
[2022-03-20] MEDS ORDERED: aspirin 325mg tablet, delayed-release (Ecotrin) PO ONE (23:05)
[2022-03-20 23:14] LABS: APTT 25 SECONDS (22-32)
[2022-03-20 23:16] LABS: ALANINE AMINOTRANSFERASE 100 U/L (12-78); ALBUMIN 3.1 G/DL (3.4-5.0); ALBUMIN/GLOBULIN RATIO 0.8 (1.1-1.5); ALKALINE PHOSPHATASE 173 IU/L (46-116); ANION GAP 10 (8-16); BILIRUBIN,TOTAL 0.5 MG/DL (0.1-1.0); BLOOD UREA NITROGEN 17 MG/DL (7-18); BUN/CREATININE RATIO 10.1 (5.4-32.0); CHLORIDE 106 MMOL/L (99-107); CREATININE 1.69 MG/DL (0.60-1.10); GLUCOSE 141 MG/DL (70-104); SODIUM 140 MMOL/L (135-145); TOTAL CARBON DIOXIDE 23.6 MMOL/L (24-32); TOTAL PROTEIN 6.9 G/DL (6.4-8.2); eGFR 43 ML/MIN
[2022-03-20] MEDS ORDERED: LISI10TA27 PO (23:24)
[2022-03-20] MEDS ORDERED: ATOR20TA66 PO (23:24)
--- NOTE | 2022-03-20 23:27 | NUR ---
PT AMBULATED AROUND THE LOVE WITHOUT ANY COMPLICATIONS.
[2022-03-20 23:32] LABS: POTASSIUM 3.2 MMOL/L (3.5-5.1)
[2022-03-20 23:37] LABS: ASPARTATE AMINO TRANSFERASE 147 U/L (10-37)
[2022-03-20 23:41] LABS: ETHANOL 0.268 GM/DL (0.0-0.010)
--- NOTE | 2022-03-20 23:50 | NUR ---
Pt wanted to sign the AMA form since the doctor told him that everything was okay and he had to walk home. AMA form signed and pt left the ER.
[2022-03-20 23:55] VITALS: BP 124/64
== END 2022-03-20 23:58 | disposition admitted as inpatient to this hospital (09) ==
LOC: ER 22:30
DX: I63.9 Cerebral infarction, unspecified (principal); F12.10 Cannabis abuse, uncomplicated; F17.200 Nicotine dependence, unspecified, uncomplicated; J44.9 Chronic obstructive pulmonary disease, unspecified; Z87.19 Personal history of other diseases of the digestive system; Z79.82 Long term (current) use of aspirin; Z79.899 Other long term (current) drug therapy; Z59.00 Homelessness unspecified; Z56.0 Unemployment, unspecified
CPT/HCPCS: 36415; 70450; 70496; 70498; 71045; 80053; 80320; 82948; 85025; 85610; 85730; 86885; 86900; 86901; 93005; 99291; Q9967

== ENCOUNTER 2023-01-24 17:51 | Emergency (ER) | payer MEDICAID ==
[~2023-01-24] VITALS: Ht 195.6 cm; Wt 133.6 kg
[~2023-01-24 17:51] MED LIST changes: -ATOR-2 PO; +ATOR20TA66 PO; +LISI10TA27 PO; -LISI5TAB22 PO
[2023-01-24 18:54] LABS: BASOPHILS # (AUTO) 0.1 X10'3 (0-0.2); BASOPHILS % (AUTO) 1.2 % (0-1); EOSINOPHILS # (AUTO) 0.4 X10'3 (0-0.9); EOSINOPHILS % (AUTO) 4.3 % (0-6); HEMATOCRIT 43.9 % (42.0-52.0); HEMOGLOBIN 14.9 g/dl (14.0-17.9); LYMPHOCYTES # (AUTO) 2.7 X10'3 (1.1-4.8); LYMPHOCYTES % (AUTO) 29.2 % (21-51); MEAN CORPUSCULAR HGB CONC 33.8 g/dL (33.0-36.5); MEAN CORPUSCULAR VOLUME 109.3 FL (78-98); MEAN PLATELET VOLUME 9.2 FL (7.4-10.4); MONOCYTES # (AUTO) 0.8 X10'3 (0-0.9); MONOCYTES % (AUTO) 8.8 % (2-12); NEUTROPHILS # (AUTO) 5.2 X10'3 (1.8-7.7); NEUTROPHILS % (AUTO) 56.5 % (42-75); PLATELET COUNT 125 X10'3 (140-440); RED BLOOD COUNT 4.01 X10'6 (4.70-6.10); RED CELL DISTRIBUTION WIDTH 14.2 % (11.5-14.5); WHITE BLOOD COUNT 9.2 X10'3 (4.5-11.0)
[2023-01-24 19:04] LABS: ALANINE AMINOTRANSFERASE 53 U/L (12-78); ALBUMIN 3.3 G/DL (3.4-5.0); ALBUMIN/GLOBULIN RATIO 0.8 (1.1-1.5); ALKALINE PHOSPHATASE 187 IU/L (46-116); ANION GAP 9 (8-16); ASPARTATE AMINO TRANSFERASE 97 U/L (10-37); BILIRUBIN,TOTAL 0.8 MG/DL (0.1-1.0); BLOOD UREA NITROGEN 12 MG/DL (7-18); BUN/CREATININE RATIO 10.6 (10.0-20.0); CALCIUM 8.7 MG/DL (8.5-10.1); CHLORIDE 106 MMOL/L (99-107); CREATININE 1.13 MG/DL (0.60-1.10); GLUCOSE 100 MG/DL (70-104); LIPASE 331 U/L (73-393); POTASSIUM 3.8 MMOL/L (3.5-5.1); SODIUM 141 MMOL/L (135-145); TOTAL CARBON DIOXIDE 25.8 MMOL/L (24-32); TOTAL PROTEIN 7.3 G/DL (6.4-8.2); eGFR 69 ML/MIN
[2023-01-24 19:28] LABS: TOTAL CELLS COUNTED 100
[2023-01-24 19:29] LABS: PLATELET ESTIMATE DECREASED; SMUDGE CELLS FEW; TEAR DROP CELLS FEW
[2023-01-24 20:18] VITALS: BP 103/51
[2023-01-24 20:24] LABS: ETHANOL 0.236 GM/DL (0.0-0.010)
[2023-01-24] MEDS ORDERED: HYDROcodone/acetaminophen 10/325mg tab PO ONE (20:30)
== END 2023-01-24 20:47 | disposition home or self-care (01) ==
LOC: ER 17:52
DX: K46.9 Unspecified abdominal hernia without obstruction or gangrene (principal); J44.9 Chronic obstructive pulmonary disease, unspecified; F10.10 Alcohol abuse, uncomplicated; F12.90 Cannabis use, unspecified, uncomplicated; Z59.00 Homelessness unspecified; Z79.82 Long term (current) use of aspirin; Z79.899 Other long term (current) drug therapy; Y90.9 Presence of alcohol in blood, level not specified
CPT/HCPCS: 36415; 80053; 80320; 83690; 85007; 85025; 99283

== ENCOUNTER 2023-05-01 06:39 | Emergency (ER) | payer MEDICAID ==
[~2023-05-01] VITALS: Ht 195.6 cm; Wt 150.0 kg
[2023-05-01 06:46] VITALS: TEMP 97.8
[2023-05-01] MEDS ORDERED: HYDROcodone/acetaminophen 10/325mg tab PO ONE (07:30)
[2023-05-01] MEDS ORDERED: HYDR-3973 PO (07:41)
[2023-05-01 07:54] VITALS: BP 149/90; PULSE 91; RESP 17; O2SAT 94
== END 2023-05-01 07:55 | disposition home or self-care (01) ==
LOC: ER 06:39
DX: S20.212A Contusion of left front wall of thorax, initial encounter (principal); R07.81 Pleurodynia; J44.9 Chronic obstructive pulmonary disease, unspecified; Z87.19 Personal history of other diseases of the digestive system; F12.90 Cannabis use, unspecified, uncomplicated; Z72.89 Other problems related to lifestyle; Z59.00 Homelessness unspecified; Z79.82 Long term (current) use of aspirin; Z79.899 Other long term (current) drug therapy; W18.30XA Fall on same level, unspecified, initial encounter; Z91.81 History of falling; Y93.89 Activity, other specified; Y92.89 Other specified places as the place of occurrence of the external cause; Y99.8 Other external cause status
CPT/HCPCS: 71046; 99284

== ENCOUNTER 2023-06-15 11:49 | Emergency (ER) | payer MEDICAID ==
[~2023-06-15] VITALS: Ht 195.6 cm; Wt 117.2 kg
[2023-06-15 12:46] LABS: CLARITY,URINE CLOUDY (Clear); COLOR,URINE AMBER (Yellow)
[2023-06-15 12:47] LABS: UA COLLECTION TYPE CLN CATCH MIDSTREAM
[2023-06-15 12:52] LABS: SQUAMOUS EPITHELIAL CELL,UR MANY /LPF (FEW)
[2023-06-15 12:53] LABS: BACTERIA,URINE 2+ /HPF (Neg); MUCUS STRANDS MODERATE /LPF (Neg); RBC,URINE TNTC /HPF (0-2)
[2023-06-15] MEDS ORDERED: AMOX-117 PO (14:56)
[2023-06-15 15:18] VITALS: BP 134/81; PULSE 86; RESP 16; TEMP 98.7; O2SAT 97
== END 2023-06-15 15:19 | disposition home or self-care (01) ==
LOC: ER 11:50
DX: S31.109A Unspecified open wound of abdominal wall, unspecified quadrant without penetration into peritoneal cavity, initial encounter (principal); N39.0 Urinary tract infection, site not specified; J44.9 Chronic obstructive pulmonary disease, unspecified; F12.90 Cannabis use, unspecified, uncomplicated; F10.10 Alcohol abuse, uncomplicated; Z79.01 Long term (current) use of anticoagulants; Z59.00 Homelessness unspecified; Z79.82 Long term (current) use of aspirin; Z79.899 Other long term (current) drug therapy
CPT/HCPCS: 81001; 87088; 99284

== ENCOUNTER 2023-06-26 17:32 | Emergency (ER) | payer MEDICAID ==
[~2023-06-26] VITALS: Ht 195.6 cm; Wt 142.6 kg
[~2023-06-26 17:32] MED LIST changes: +AMOX-117 PO
[2023-06-27] MEDS ORDERED: TETanus/Pertussis (Acell)/Diphther VAC/PF (Tdap-Adult) 0.5ml syringe IMVAC ONE (01:35)
[2023-06-27] MEDS ORDERED: acetaminophen 325mg tablet PO ONE (01:35)
[2023-06-27 02:48] VITALS: BP 148/92; PULSE 92; RESP 18; TEMP 98.6; O2SAT 97
== END 2023-06-27 02:51 | disposition home or self-care (01) ==
LOC: ER 17:33
DX: S31.113A Laceration without foreign body of abdominal wall, right lower quadrant without penetration into peritoneal cavity, initial encounter (principal); X58.XXXA Exposure to other specified factors, initial encounter; Y93.89 Activity, other specified; Y92.89 Other specified places as the place of occurrence of the external cause; Y99.8 Other external cause status
CPT/HCPCS: 90471; 90715; 99283; A6449